=== PATIENT | female | born 2000 ===

== ENCOUNTER 2019-01-11 20:40 | Emergency (ER) | payer BC, OTHER ==
[~2019-01-11] VITALS: Ht 165.1 cm; Wt 86.2 kg
[2019-01-11] MEDS ORDERED: diphenhydrAMINE 50 MG/ML INJ (BENADRYL) ONE (20:54)
[2019-01-11] MEDS ORDERED: methylPREDNISolone 125 MG (Solu-MEDROL) VIAL ONE (20:55)
[2019-01-11] MEDS ORDERED: FAMOTIDINE 20MG/2ML IV (PEPCID) ONE (20:55)
[2019-01-11] MEDS ORDERED: FAMOTIDINE 20MG/2ML IV (PEPCID) IVP ONE (21:00)
[2019-01-11] MEDS ORDERED: methylPREDNISolone 125 MG (Solu-MEDROL) VIAL IVP ONE (21:00)
[2019-01-11] MEDS ORDERED: diphenhydrAMINE 50 MG/ML INJ (BENADRYL) IVP ONE (21:00)
[2019-01-11] MEDS ORDERED: PRD20T PO (21:01)
--- NOTE | 2019-01-11 21:01 | ED General ---
General Chief Complaint: Allergic Reaction Stated Complaint: ALLERGIC REACTION Source of Information: Patient Exam Limitations: No Limitations History of Present Illness Date Seen by Provider: Jan 11, 2019 Time Seen by Provider: 20:56 Initial Comments the to ER with reports of allergic reaction. To ER with reports of allergic reaction. She reports tongue pain and itching. No difficulty swallowing. No rash or hives. No difficulty breathing. No abdominal cramping or diarrhea or nausea or vomiting. She states that she has a history of allergy to tree nuts and ate pistachios about 15 mins prior to arrival. She had a Benadryl orally about 2 hours ago for seasonal allergies. Timing/Duration: Other (15 minutes) Severity: Mild Allergies and Home Medications Allergies Coded Allergies: tree nut (Verified Allergy, Unknown, 01/11/19) Home Medications Prednisone 20 Mg Tab, 20 MG PO BID Prescribed by: AARON PARKS on 01/11/192100 Patient Home Medication List Home Medication List Reviewed: Yes Review of Systems Review of Systems Constitutional: see HPI EENTM: other (tongue pain and itching) Respiratory: see HPI Cardiovascular: no symptoms reported Genitourinary: no symptoms reported Musculoskeletal: no symptoms reported Skin: no symptoms reported Psychiatric/Neurological: No Symptoms Reported Hematologic/Lymphatic: No Symptoms Reported Immunological/Allergic: no symptoms reported Past Bksgglx-Wdpeyo-Yaaadn Hx Patient Social History Recent Foreign Travel: No Contact w/Someone Who Travel: No Physical Exam Vital Signs Vital Signs - First Documented 01/11/19 20:45 Temp 99.0 Pulse 110 Resp 20 B/P (MAP) 152/93 (112) Pulse Ox 100 O2 Delivery Room Air Capillary Refill : Height, Weight, BMI Height: '" Weight: lbs. oz. kg; BMI Method: General Appearance: No Apparent Distress, WD/WN, Other (speaks in full sense is no stridor no respiratory distress no diaphoresis vitals are stable with the exception of tachycardia which can be explained by her anxiety.) Eyes: Bilateral Eye Normal Inspection, Bilateral Eye PERRL, Bilateral Eye EOMI HEENT: PERRL/EOMI, TMs Normal, Other (tongue is noted to have a geographic tongue appearance, slightly erythematous) Neck: Full Range of Motion, Normal Inspection Respiratory: Normal Breath Sounds, No Accessory Muscle Use, No Respiratory Distress Cardiovascular: Normal Peripheral Pulses, Tachycardia Gastrointestinal: Normal Bowel Sounds, Non Tender, Soft Extremity: Normal Capillary Refill, Normal Inspection Neurologic/Psychiatric: Alert, Oriented x3 Skin: Normal Color, Warm/Dry; No Rash Progress/Results/Core Measures Suspected Sepsis SIRS Temperature: Pulse: Respiratory Rate: Blood Pressure / Mean: Results/Orders My Orders Orders - AARON PARKS APRN Iv Heplock-Insert (Order) (01/11/19 20:53) Diphenhydramine Injection (Benadryl Inje (01/11/19 21:00) Famotidine Injection (Pepcid Injection) (01/11/19 21:00) Methylprednisolone Sod Succ (Solu-Medrol (01/11/19 21:00) Diphenhydramine Injection (Benadryl Inje (01/11/19 20:54) Methylprednisolone Sod Succ (Solu-Medrol (01/11/19 20:55) Famotidine Injection (Pepcid Injection) (01/11/19 20:55) Medications Given in ED Current Medications Medications Dose Ordered Sig/Lyndon Route Start Time Stop Time Status Last Admin Dose Admin Diphenhydramine HCl 25 mg ONCE ONCE IVP 01/11/19 21:00 01/11/19 21:01 DC 01/11/19 21:02 25 MG Famotidine 20 mg ONCE ONCE IVP 01/11/19 21:00 01/11/19 21:01 DC 01/11/19 21:03 20 MG Methylprednisolone Sodium Succinate 125 mg ONCE ONCE IVP 01/11/19 21:00 01/11/19 21:01 DC 01/11/19 21:02 125 MG Vital Signs/I&O 01/11/19 20:45 Temp 99.0 Pulse 110 Resp 20 B/P (MAP) 152/93 (112) Pulse Ox 100 O2 Delivery Room Air Capillary Refill : Departure Communication (Admissions) Family Conversation 2200-states she is feeling quite a bit better, tired now. The erythema of the tongue seems to be less pronounced. Still no swelling no rash no hives and no symptoms. Impression Primary Impression: Allergic reaction Qualified Codes: T78.40XA - Allergy, unspecified, initial encounter Disposition: HOME, SELF-CARE Condition: Stable Departure-Patient Inst. Decision time for Depature: 21:00 Referrals: MYRTLE DELEON DO (PCP/Family) Primary Care Physician Patient Instructions: Food Allergy Add. Discharge Instructions: 1. Return to ER for any concerns 2. Follow-up with your doctor next week 3. Return to ER for any worsening. All discharge instructions reviewed with patient and/or family. Voiced understanding. Scripts Prednisone (Prednisone) 20 Mg Tab 20 MG PO BID, #2 TAB Prov: AARON PARKS APRN 01/11/19 AARON PARKS APRN Jan 11, 2019 21:01
--- NOTE | 2019-01-11 21:31 | NUR ---
PT REPORTS SHE IS NO LONGER EXPERIENCING TONGUE OR LIP DISCOMFORT. DENIES SOB, DIFFICULTY BREATHING, OR SWALLOWING. NO DISTRESS NOTED. REPORTS NO NEEDS OR CONCERNS @ THIS TIME. WILL CONTINUE TO MONITOR.
[2019-01-11 22:13] VITALS: BP 134/94
== END 2019-01-11 22:13 | disposition home or self-care (01) ==
LOC: EDUNIT# 20:40 → ER 20:41
DX: T78.40XA Allergy, unspecified, initial encounter (principal); Z79.52 Long term (current) use of systemic steroids; Z91.018 Allergy to other foods
CPT/HCPCS: 96374; 96375

== ENCOUNTER 2019-10-02 23:49 | Emergency (ER) | payer BC ==
[~2019-10-02] VITALS: Ht 162 cm; Wt 83.0 kg
[~2019-10-02 23:49] MED LIST: PRD20T PO
--- NOTE | 2019-10-03 01:23 | ED GI ---
General Chief Complaint: Abdominal/GI Problems Stated Complaint: VOMITING, ABD PAIN Nursing Triage Note: Pt ambulates to RM 10 with c/o upper midline abd pain, N/V x 2 hrs. Pt denies any urinary or bowel changes. Sepsis Screen: No Definite Risk Source of Information: Patient Exam Limitations: No Limitations (JADA KEITH MED STUDENT) History of Present Illness Date Seen by Provider: Oct 03, 2019 Time Seen by Provider: 01:02 Initial Comments Pt presents to ED after experiencing crampy RUQ abdominal pain at approximately 2230 on 10/02/2019. She states the pain woke her up, is constantly crampy with occasional sharp exacerbations and radiates to her back. She has had this pain previously and associates it with poor diet choices. Has had chills, weakness and constant nausea since onset and has vomited more times than she can remember. Denies fever, diarrhea, constipation, melena. Timing/Duration: 1-3 Hours, Constant Severity/Quality: Severe, Aching, Dull, Stabbing Location: RUQ Radiation: Back Activities at Onset: Sleeping Modifying Factors: Worsens With Eating, Worsens With Palpation Associated Symptoms: No Back Pain, No Chest Pain, No Diaphoresis; Fever/Chills, Headache, Nausea/Vomiting, Weakness (JADA KEITH MED STUDENT) Location: Epigastric Radiation: Back Associated Symptoms: Nausea/Vomiting (WESLEY ABREU MD) Allergies and Home Medications Allergies Coded Allergies: tree nut (Verified Allergy, Unknown, 01/11/19) Home Medications Prednisone 20 Mg Tab, 20 MG PO BID Prescribed by: AARON PARKS on 01/11/192100 Patient Home Medication List Home Medication List Reviewed: Yes (JADA KEITH MED STUDENT) Home Medication List Reviewed: Yes (WESLEY ABREU MD) Review of Systems Review of Systems Constitutional: chills; No diaphoresis, No fever; malaise, weakness EENTM: No Eye Pain, No Ear Pain, No Mouth Pain, No Nose Pain, No Throat Pain Respiratory: Denies Cough, Denies Orthopnea Cardiovascular: Denies Chest Pain, Denies Syncope Gastrointestinal: Abdominal Pain, Diarrhea, Nausea, Vomiting Musculoskeletal: No back pain, No joint pain Skin: No lesions, No lumps, No rash Psychiatric/Neurological: Denies Anxiety, Denies Depressed Endocrine: Denies Intolerance to Cold, Denies Intolerance to Heat Hematologic/Lymphatic: Denies Blood Clots, Denies Easy Bleeding (JADA KEITH MED STUDENT) Respiratory: No Symptoms Reported Cardiovascular: No Symptoms Reported Gastrointestinal: Abdominal Pain, Vomiting Genitourinary: No Symptoms Reported (WESLEY ABREU MD) Past Jmqzqfx-Fqxjyx-Rtajxe Hx Past Med/Social Hx: Reviewed Nursing Past Med/Soc Hx (WESLEY ABREU MD) Patient Social History Alcohol Use: Rarely Uses Recreational Drug Use: No Smoking Status: Never a Smoker 2nd Hand Smoke Exposure: No Recent Foreign Travel: No Contact w/Someone Who Travel: No Recent Infectious Disease Expo: No Recent Hopitalizations: No Physical Abuse: No Sexual Abuse: No Mistreated: No Fear: No (JADA KEITH MED STUDENT) Seasonal Allergies Seasonal Allergies: No (JADA KEITH MED STUDENT) Past Medical History Surgeries: No Respiratory: No Cardiac: Yes (heart murmur at ) Neurological: No Genitourinary: No Gastrointestinal: No Musculoskeletal: No Endocrine: No HEENT: No Cancer: No Psychosocial: No Integumentary: No Blood Disorders: No (JADA KEITH MED STUDENT) Family Medical History Reviewed Nursing Family Hx (WESLEY ABREU MD) Cancer (JADA KEITH MED STUDENT) Physical Exam Vital Signs Vital Signs - First Documented 10/03/19 00:06 Temp 37.0 Pulse 112 Resp 18 B/P (MAP) 133/76 (95) Pulse Ox 98 O2 Delivery Room Air (WESLEY ABREU MD) Vital Signs Capillary Refill : Less Than 3 Seconds (JADA KEITH MED STUDENT) Height/Weight/BMI Height: 5'5.00" Weight: 190lbs. oz. 86.037156cu; 31.00 BMI Method:Stated General Appearance: WD/WN, no apparent distress HEENT: PERRL/EOMI, normal ENT inspection, TMs normal, pharynx normal Neck: non-tender, supple Respiratory: chest non-tender, lungs clear, normal breath sounds, no respiratory distress, no accessory muscle use Cardiovascular: regular rate, rhythm, no edema, no gallop Gastrointestinal: soft; No distended, No guarding, No rebound; tenderness (RUQ to deep palpation ), other Extremities: no pedal edema, no calf tenderness, normal capillary refill Back: normal inspection, no CVA tenderness, no vertebral tenderness Neurologic/Psychiatric: alert, oriented x 3 Skin: normal color, warm/dry Lymphatic: no adenopathy (anterior/posterior cervical, supra/infraclavicular ) (JADA KEITH,MED STUDENT) General Appearance: WD/WN, no apparent distress Respiratory: lungs clear, normal breath sounds Cardiovascular: regular rate, rhythm, no murmur Gastrointestinal: soft, tenderness (epigastric region) Back: normal inspection, no CVA tenderness, no vertebral tenderness (WESLEY ABREU MD) Progress/Results/Core Measures Results/Orders Lab Results Laboratory Tests Test 10/03/19 01:47 Range/Units White Blood Count 15.5 H 4.3-11.0 10^3/uL Red Blood Count 4.85 4.35-5.85 10^6/uL Hemoglobin 13.4 11.5-16.0 G/DL Hematocrit 41 35-52 % Mean Corpuscular Volume 85 80-99 FL Mean Corpuscular Hemoglobin 28 25-34 PG Mean Corpuscular Hemoglobin Concent 33 32-36 G/DL Red Cell Distribution Width 13.5 10.0-14.5 % Platelet Count 374 130-400 10^3/uL Mean Platelet Volume 9.0 7.4-10.4 FL Neutrophils (%) (Auto) 85 H 42-75 % Lymphocytes (%) (Auto) 7 L 12-44 % Monocytes (%) (Auto) 8 0-12 % Eosinophils (%) (Auto) 1 0-10 % Basophils (%) (Auto) 0 0-10 % Neutrophils # (Auto) 13.2 H 1.8-7.8 X 10^3 Lymphocytes # (Auto) 1.0 1.0-4.0 X 10^3 Monocytes # (Auto) 1.2 H 0.0-1.0 X 10^3 Eosinophils # (Auto) 0.1 0.0-0.3 10^3/uL Basophils # (Auto) 0.0 0.0-0.1 10^3/uL Neutrophils % (Manual) 91 % Lymphocytes % (Manual) 4 % Monocytes % (Manual) 4 % Eosinophils % (Manual) 1 % Sodium Level 141 135-145 MMOL/L Potassium Level 4.2 3.6-5.0 MMOL/L Chloride Level 105 98-107 MMOL/L Carbon Dioxide Level 21 21-32 MMOL/L Anion Gap 15 H 5-14 MMOL/L Blood Urea Nitrogen 15 7-18 MG/DL Creatinine 0.82 0.60-1.30 MG/DL Estimat Glomerular Filtration Rate > 60 BUN/Creatinine Ratio 18 Glucose Level 107 H 70-105 MG/DL Calcium Level 9.0 8.5-10.1 MG/DL Corrected Calcium 8.7 8.5-10.1 MG/DL Total Bilirubin 0.2 0.1-1.0 MG/DL Aspartate Amino Transf (AST/SGOT) 22 5-34 U/L Alanine Aminotransferase (ALT/SGPT) 16 0-55 U/L Alkaline Phosphatase 61 40-136 U/L C-Reactive Protein High Sensitivity 0.47 0.00-0.50 MG/DL Total Protein 7.8 6.4-8.2 GM/DL Albumin 4.4 3.2-4.5 GM/DL Serum Test, Qualitative NEGATIVE NEGATIVE (WESLEY ABREU MD) My Orders Orders - WESLEY ABREU MD Cbc With Automated Diff (10/03/19 01:37) Comprehensive Metabolic Panel (10/03/19 01:37) Hs C Reactive Protein (10/03/19 01:37) Hcg,Qualitative Serum (10/03/19 01:37) Ed Iv/Invasive Line Start (10/03/19 01:37) Ns Iv 1000 Ml (Sodium Chloride 0.9%) (10/03/19 01:37) Ondansetron Injection (Zofran Injectio (10/03/19 01:45) Ketorolac Injection (Toradol Injection) (10/03/19 01:37) Manual Differential (10/03/19 01:47) Famotidine Injection (Pepcid Injection) (10/03/19 02:30) (WESLEY ABREU MD) Medications Given in ED Current Medications Medications Dose Ordered Sig/Lyndon Route Start Time Stop Time Status Last Admin Dose Admin Ondansetron HCl 4 mg ONCE ONCE IVP 10/03/19 01:45 10/03/19 01:46 DC 10/03/19 01:57 4 MG Sodium Chloride 1,000 ml @ 0 mls/hr Q0M ONCE IV 10/03/19 01:37 10/03/19 01:39 DC 10/03/19 01:57 0 MLS/HR (WESLEY ABREU MD) Vital Signs/I&O 10/03/19 00:06 Temp 37.0 Pulse 112 Resp 18 B/P (MAP) 133/76 (95) Pulse Ox 98 O2 Delivery Room Air (WESLEY ABREU MD) Blood Pressure Mean: 95 POS Progress Progress Note : Time: 01:24 Progress Note Seen and evaluated. Ordered CMP, CBC and abdominal CT w/o contrast to r/o cholelithiasis, choledocholithiasis. Administering Zofran for vomiting. Will consult surgery suspect cholecystectomy. (JADA KEITH,MED STUDENT) Progress Note : Progress Note I have seen and evaluated the patient and agree with above except as indicated. I have directed the plan of care. Patient now reports that the pain is mostly in the epigastric region and goes to her back. Noticed this tonight when it woke her up with the pain. She has not really had pain like this before she reports now. She has not been eating well and has been under a lot of stress at work due to the increased demand during the holiday season. She is starting to feel better overall. Patient does have some history of reflux problems in her mother does as well. IV, labs and ondansetron 4 mg IV. Normal saline 1 L bolus. We will give Pepcid 20 mg IV. Monitor patient. 0320: Pain relieved and feels normal now. Labs evaluated in there is elevation in white blood cell count but this may be related to the vomiting. No elevation in total bilirubin or liver enzymes and currently no indications of gallbladder disease. This seems to be more reflux issues. Discharged home with return precautions. Patient verbalize understanding instructions and agreement with plan. (WESLEY ABREU MD) Departure Impression Primary Impression: Epigastric abdominal pain Disposition: HOME, SELF-CARE Condition: Improved Departure-Patient Inst. Decision time for Depature: 03:24 (WESLEY ABREU MD) Referrals: DEEDEE DUNCAN MD (PCP/Family) Primary Care Physician Patient Instructions: Acute Abdomen (Belly Pain), Adult (DC), Acid Reflux (Gastroesophageal Reflux Disease) in Adults Add. Discharge Instructions: All discharge instructions reviewed with patient and/or family. Voiced understanding. You may take Pepcid or the generic famotidine 20 mg for your stomach upset. You should take this twice daily for the next 7 days and then once or twice daily thereafter as needed for stomach upset. Follow-up with your doctor and discuss with her regarding your pain and situation. You may need referral to a surgeon for upper endoscopy but you can discussed this with your doctor. Return for worse pain, fever, vomiting, weakness, breathing problems or other concerns as needed. JADA KEITH,MED STUDENT Oct 03, 2019 01:23 WESLEY BULLOCK MD Oct 03, 2019 03:25 POS
[2019-10-03] MEDS ORDERED: NS IV 1000 ML 1,000 ML IV ONE (01:37)
[2019-10-03] MEDS ORDERED: KETOROLAC 30 MG/ML VIAL IVP STA (01:37)
[2019-10-03] MEDS ORDERED: ONDANSETRON 4 MG/2 ML (SDV) Z0FRAN IVP ONE (01:45)
[2019-10-03 02:00] LABS: BASOPHILS % (AUTO) 0 % (0-10); EOSINOPHILS # (AUTO) 0.1 10^3/uL (0.0-0.3); EOSINOPHILS % (AUTO) 1 % (0-10); HEMATOCRIT 41 % (35-52); HEMOGLOBIN 13.4 G/DL (11.5-16.0); LYMPHOCYTES % (AUTO) 7 % (12-44); MEAN CORPUSCULAR HEMOGLOBIN 28 PG (25-34); MEAN CORPUSCULAR HGB CONC 33 G/DL (32-36); MEAN CORPUSCULAR VOLUME 85 FL (80-99); MONOCYTES # (AUTO) 1.2 X 10^3 (0.0-1.0); MONOCYTES % (AUTO) 8 % (0-12); NEUTROPHILS # (AUTO) 13.2 X 10^3 (1.8-7.8); NEUTROPHILS % (AUTO) 85 % (42-75); PLATELET COUNT 374 10^3/uL (130-400); RED CELL DISTRIBUTION WIDTH 13.5 % (10.0-14.5); WHITE BLOOD COUNT 15.5 10^3/uL (4.3-11.0)
[2019-10-03 02:22] LABS: ALANINE AMINOTRANSFERASE 16 U/L (0-55); ALBUMIN 4.4 GM/DL (3.2-4.5); ALKALINE PHOSPHATASE 61 U/L (40-136); BILIRUBIN,TOTAL 0.2 MG/DL (0.1-1.0); BUN/CREATININE RATIO 18; CARBON DIOXIDE 21 MMOL/L (21-32); CHLORIDE 105 MMOL/L (98-107); CREATININE SERUM 0.82 MG/DL (0.60-1.30); GFR ESTIMATED > 60; GLUCOSE 107 MG/DL (70-105); POTASSIUM 4.2 MMOL/L (3.6-5.0); SODIUM 141 MMOL/L (135-145); TOTAL PROTEIN 7.8 GM/DL (6.4-8.2)
[2019-10-03] MEDS ORDERED: FAMOTIDINE 20MG/2ML IV (PEPCID) IV STA (02:30)
[2019-10-03 02:49] LABS: EOSINOPHILS % (MANUAL) 1 %; LYMPHOCYTES % (MANUAL) 4 %; MONOCYTES % (MANUAL) 4 %; NEUTROPHILS % (MANUAL) 91 %
[2019-10-03 03:54] VITALS: BP 133/76
== END 2019-10-03 04:05 | disposition home or self-care (01) ==
LOC: EDUNIT# 23:49 → ER 23:51
DX: R10.13 Epigastric pain (principal); Z79.52 Long term (current) use of systemic steroids
CPT/HCPCS: 36415; 80053; 84703; 85007; 85027; 86141

== ENCOUNTER 2019-10-05 06:59 | Emergency (ER) | payer BC ==
[~2019-10-05] VITALS: Ht 162.5 cm; Wt 86.0 kg
[2019-10-05] MEDS ORDERED: LACTATED RINGERS 1,000 ML IV ONE (07:18)
--- NOTE | 2019-10-05 07:20 | ED Abdominal Pain ---
General Stated Complaint: VOMITING,ABD PAIN,WEAK Source of Information: Patient History of Present Illness Date Seen by Provider: Oct 05, 2019 Time Seen by Provider: 07:15 Initial Comments PT ARRIVES VIA POV FROM HOME C/O NAUSEA AND VOMITING STATES SHE STARTED HAVING SYMPTOMS ON THURSDAY, AND WAS SEEN HERE 10/02/19--HAD LAB DONE, AND WAS FEELING BETTER, SO SENT HOME, NO RX'S --WAS TOLD TO TAKE OTC OMEPRAZOLE. PT STATES YESTERDAY SHE "FELT SUPER SLUGGISH" AND HAS HAD DECREASED APPETITE STATES SHE ATE [employer] THIS AM AND THEY STAYED DOWN, THEN ATE [employer]ONG[employer] Y[employer]URT AND VOMITED X 1 AFTER EATING THAT. PT IS KEEPING LIQUIDS DOWN, AND IS ACTIVELY DRINKING A BOTTLE OF WATER ON ARRIVAL. PT ADVISED THAT SHE NEEDED TO REMAIN NPO UNTIL TESTS WERE DONE NO DIARRHEA, HAD NORMAL BM YESTERDAY STATES SHE IS VOIDING A NORMAL AMOUNT, AND NO URINARY SYMPTOMS NO FEVER, BUT HAS HAD " COLD SHAKES" DENIES ANY ABDOMINAL PAIN, STATES SHE JUST FEELS BLOATED AND FULL IN UPPER ABDOMEN AREA. LMP--ENDED ON Thursday10/02/19.NORMAL. ON OCP'S. NO PRIOR GI OR PATIENT FINANCIAL ADVOCATE PROBLEMS AND NO ABDOMINAL SURGERIES PCP: DR. DUNCAN Allergies and Home Medications Allergies Coded Allergies: tree nut (Verified Allergy, Unknown, 01/11/19) Home Medications Ondansetron 4 Mg Tab.rapdis, 4 MG PO Q4H Prescribed by: SHIREEN WAKEFIELD on 10/05/19 0950 Sucralfate 1 Gm Tablet, 1 GM PO QIDACHS Prescribed by: SHIREEN WAKEFIELD on 10/05/19 0950 Patient Home Medication List Home Medication List Reviewed: Yes Review of Systems Review of Systems Constitutional: see HPI, malaise EENTM: No Symptoms Reported Respiratory: No Symptoms Reported Cardiovascular: No Symptoms Reported Gastrointestinal: See HPI; Denies Abdominal Pain, Denies Constipated, Denies Diarrhea; Nausea, Poor Appetite, Vomiting Genitourinary: No Symptoms Reported Musculoskeletal: no symptoms reported; No back pain Skin: no symptoms reported Psychiatric/Neurological: No Symptoms Reported Endocrine: No Symptoms Reported Hematologic/Lymphatic: No Symptoms Reported Past Lghsbbk-Fgppes-Zxkicy Hx Patient Social History Alcohol Use: Denies Use Recreational Drug Use: No Smoking Status: Never a Smoker 2nd Hand Smoke Exposure: No Recent Hopitalizations: No Seasonal Allergies Seasonal Allergies: No Past Medical History Surgeries: No Respiratory: No Cardiac: Yes (heart murmur at ) Neurological: No : No Reproductive Disorders: No Genitourinary: No Gastrointestinal: No Musculoskeletal: No Endocrine: No HEENT: No Cancer: No Psychosocial: No Integumentary: No Blood Disorders: No Family Medical History Cancer Physical Exam Vital Signs Vital Signs - First Documented 10/05/19 07:05 Temp 36.7 Pulse 108 Resp 18 B/P (MAP) 126/85 (99) Pulse Ox 98 Capillary Refill : Height/Weight/BMI Height: 5'5.00" Weight: 190lbs. oz. 86.290039xv; 31.00 BMI Method:Stated General Appearance: WD/WN, no apparent distress, other (DOES NOT APPEAR TO BE IN ANY DISCOMFORT OR DISTRESS. DRINKING WATER AND TEXTING/PLAYING ON PHONE. WALKS UPRIGHT AND MOVES WITHOUT DIFFICULTY. DOES NOT APPEAR TO BE IN ANY DISCOMFORT OR APPEAR ILL WHATSOEVER. ) Respiratory: normal breath sounds, no respiratory distress, no accessory muscle use Cardiovascular: regular rate, rhythm, no edema, no JVD, no murmur Gastrointestinal: normal bowel sounds, soft, no organomegaly, no pulsatile mass; No distended, No guarding, No rebound; tenderness (SLIGHT "PRESSURE" FEELING ON PALPATION OF EPIGASTRIC AREA. ); No hernia, No mass Extremities: normal inspection Back: normal inspection, no CVA tenderness Neurologic/Psychiatric: director of planning II-XII nml as tested, no motor/sensory deficits, alert, normal mood/affect, oriented x 3 Skin: normal color, warm/dry; No rash Progress/Results/Core Measures Results/Orders Lab Results Laboratory Tests Test 10/05/19 07:10 10/05/19 09:00 Range/Units White Blood Count 5.2 4.3-11.0 10^3/uL Red Blood Count 4.82 4.35-5.85 10^6/uL Hemoglobin 13.4 11.5-16.0 G/DL Hematocrit 40 35-52 % Mean Corpuscular Volume 84 80-99 FL Mean Corpuscular Hemoglobin 28 25-34 PG Mean Corpuscular Hemoglobin Concent 33 32-36 G/DL Red Cell Distribution Width 13.3 10.0-14.5 % Platelet Count 280 130-400 10^3/uL Mean Platelet Volume 8.8 7.4-10.4 FL Neutrophils (%) (Auto) 64 42-75 % Lymphocytes (%) (Auto) 21 12-44 % Monocytes (%) (Auto) 15 H 0-12 % Eosinophils (%) (Auto) 1 0-10 % Basophils (%) (Auto) 0 0-10 % Neutrophils # (Auto) 3.3 1.8-7.8 X 10^3 Lymphocytes # (Auto) 1.1 1.0-4.0 X 10^3 Monocytes # (Auto) 0.8 0.0-1.0 X 10^3 Eosinophils # (Auto) 0.0 0.0-0.3 10^3/uL Basophils # (Auto) 0.0 0.0-0.1 10^3/uL Sodium Level 137 135-145 MMOL/L Potassium Level 3.3 L 3.6-5.0 MMOL/L Chloride Level 104 98-107 MMOL/L Carbon Dioxide Level 22 21-32 MMOL/L Anion Gap 11 5-14 MMOL/L Blood Urea Nitrogen 9 7-18 MG/DL Creatinine 0.81 0.60-1.30 MG/DL Estimat Glomerular Filtration Rate > 60 BUN/Creatinine Ratio 11 Glucose Level 114 H 70-105 MG/DL Calcium Level 8.5 8.5-10.1 MG/DL Corrected Calcium 8.5 8.5-10.1 MG/DL Total Bilirubin 0.3 0.1-1.0 MG/DL Aspartate Amino Transf (AST/SGOT) 19 5-34 U/L Alanine Aminotransferase (ALT/SGPT) 17 0-55 U/L Alkaline Phosphatase 58 40-136 U/L Total Protein 7.0 6.4-8.2 GM/DL Albumin 4.0 3.2-4.5 GM/DL Amylase Level 28 25-125 U/L Lipase 10 8-78 U/L Serum Test, Qualitative NEGATIVE NEGATIVE Urine Color YELLOW Urine Clarity SL CLOUDY Urine pH 7.0 5-9 Urine Specific [place] <=1.005 1.016-1.022 Urine Protein NEGATIVE NEGATIVE Urine Glucose (UA) NEGATIVE NEGATIVE Urine Ketones NEGATIVE NEGATIVE Urine Nitrite NEGATIVE NEGATIVE Urine Bilirubin NEGATIVE NEGATIVE Urine Urobilinogen 0.2 < = 1.0 MG/DL Urine Leukocyte Esterase NEGATIVE NEGATIVE Urine RBC (Auto) TRACE-I NEGATIVE Urine RBC NONE /HPF Urine WBC 2-5 /HPF Urine Squamous Epithelial Cells 25-50 H /HPF Urine Crystals NONE /LPF Urine Bacteria MODERATE H /HPF Urine Casts NONE /LPF Urine Mucus NEGATIVE /LPF Urine Culture Indicated NO My Orders Orders - SHIREEN WAKEFIELD DO Ed Iv/Invasive Line Start (10/05/19 07:18) Amylase (10/05/19 07:18) Cbc With Automated Diff (10/05/19 07:18) Comprehensive Metabolic Panel (10/05/19 07:18) Hcg,Qualitative Serum (10/05/19 07:18) Lipase (10/05/19 07:18) Ua Culture If Indicated (10/05/19 07:18) Ed Iv/Invasive Line Start (10/05/19 07:18) Lactated Ringers (Lr 1000 Ml Iv Solution (10/05/19 07:18) Ct Abdomen/Pelvis W (10/05/19 07:26) Acute Abd Series (10/05/19 07:26) Iohexol Injection (Omnipaque 350 Mg/Ml 1 (10/05/19 07:30) Received Contrast (Hold Metformin- Contr (10/05/19 07:30) Ns (Ivpb) (Sodium Chloride 0.9% Ivpb Bag (10/05/19 07:30) Ondansetron Injection (Zofran Injectio (10/05/19 07:45) Ondansetron Injection (Zofran Injectio (10/05/19 07:34) Pantoprazole Injection (Protonix Injecti (10/05/19 08:30) Us Abdomen Complete [id number] (10/05/19 08:30) Medications Given in ED Current Medications Medications Dose Ordered Sig/Lyndon Route Start Time Stop Time Status Last Admin Dose Admin Iohexol 100 ml ONCE ONCE IV 10/05/19 07:30 10/05/19 07:55 DC 10/05/19 08:02 100 ML Lactated Ringer's 1,000 ml @ 0 mls/hr Q0M ONCE IV 10/05/19 07:18 10/05/19 07:20 DC 10/05/19 07:38 1,000 MLS/HR Ondansetron HCl 4 mg ONCE ONCE IVP 10/05/19 07:45 10/05/19 07:46 DC 10/05/19 07:35 4 MG Pantoprazole 40 mg ONCE ONCE IV 10/05/19 08:30 10/05/19 08:31 DC 10/05/19 08:35 40 MG Sodium Chloride 100 ml ONCE ONCE IV 10/05/19 07:30 10/05/19 07:55 DC 10/05/19 08:02 100 ML Vital Signs/I&O 10/05/19 07:05 Temp 36.7 Pulse 108 Resp 18 B/P (MAP) 126/85 (99) Pulse Ox 98 Progress Progress Note : Progress Note GIVEN ZOFRAN FOR NAUSEA, NO OTHER COMPLAINTS DURING ER STAY STATES SHE IS VERY HUNGRY Diagnostic Imaging Comments ABDOMEN XRAYS--NO ACUTE PROCESS, PER RADIOLOGIST REPORT AT 0830 CT ABDOMEN / PELVIS--FEW SCATTERED 1 CM MESENTERIC NODES IN RLQ, 4.4. CM LEFT OVARIAN CYST, OTHERWISE NO ACUTE PROCESS, PER RADIOLOGIST REPORT AT 0830 ABDOMINAL ULTRASOUND--NO ACUTE PROCESS, PER RADIOLOGIST REPORT AT 0945 Reviewed: Reviewed by Me Departure Impression Primary Impression: Gastroenteritis Additional Impressions: Mesenteric adenitis Left ovarian cyst Disposition: HOME, SELF-CARE Condition: Stable Departure-Patient Inst. Referrals: DEEDEE DUNCAN MD (PCP/Family) Primary Care Physician Patient Instructions: [id number], Mesenteric Lymphadenitis (DC), Ovarian Cyst (DC) Add. Discharge Instructions: CLEAR LIQUIDS--WATER, BROTH, JELLO, GATORADE BRATS DIET--BANANAS, RICE, APPLESAUCE, TOAST, SALTINES CONTINUE OMEPRAZOLE DAILY FOLLOW UP WITH DR. DUNCAN NEXT WEEK FOR FURTHER CARE, RETURN TO ER IF WORSE Scripts Sucralfate (Carafate) 1 Gm Tablet 1 GM PO QIDACHS, #60 TAB Prov: SHIREEN WAKEFIELD DO 10/05/19 Ondansetron (Ondansetron Odt) 4 Mg Tab.rapdis 4 MG PO Q4H for Nausea/Vomiting, #10 TAB Prov: SHIREEN WAKEFIELD DO 10/05/19 SHIREEN WAKEFIELD DO Oct 05, 2019 07:20 POS
[2019-10-05 07:28] LABS: BASOPHILS % (AUTO) 0 % (0-10); EOSINOPHILS % (AUTO) 1 % (0-10); HEMATOCRIT 40 % (35-52); HEMOGLOBIN 13.4 G/DL (11.5-16.0); LYMPHOCYTES # (AUTO) 1.1 X 10^3 (1.0-4.0); LYMPHOCYTES % (AUTO) 21 % (12-44); MEAN CORPUSCULAR HEMOGLOBIN 28 PG (25-34); MEAN CORPUSCULAR HGB CONC 33 G/DL (32-36); MEAN CORPUSCULAR VOLUME 84 FL (80-99); MEAN PLATELET VOLUME 8.8 FL (7.4-10.4); MONOCYTES # (AUTO) 0.8 X 10^3 (0.0-1.0); MONOCYTES % (AUTO) 15 % (0-12); NEUTROPHILS # (AUTO) 3.3 X 10^3 (1.8-7.8); NEUTROPHILS % (AUTO) 64 % (42-75); PLATELET COUNT 280 10^3/uL (130-400); RED CELL DISTRIBUTION WIDTH 13.3 % (10.0-14.5); WHITE BLOOD COUNT 5.2 10^3/uL (4.3-11.0)
[2019-10-05] MEDS ORDERED: IOHEXOL 350 MG/ML 100 ML (OMNIPAQUE 350) VIAL IV ONE (07:30)
[2019-10-05] MEDS ORDERED: NS 100 ML (IVPB) BAG IV ONE (07:30)
[2019-10-05] MEDS ORDERED: HOLD METFORMIN - RECEIVED CONTRAST 20 ML VIAL IV SCH (07:30)
[2019-10-05] MEDS ORDERED: ONDANSETRON 4 MG/2 ML (SDV) Z0FRAN ONE (07:34)
[2019-10-05 07:45] LABS: ALANINE AMINOTRANSFERASE 17 U/L (0-55); ALKALINE PHOSPHATASE 58 U/L (40-136); AMYLASE 28 U/L (25-125); BILIRUBIN,TOTAL 0.3 MG/DL (0.1-1.0); BUN/CREATININE RATIO 11; CALCIUM 8.5 MG/DL (8.5-10.1); CARBON DIOXIDE 22 MMOL/L (21-32); CHLORIDE 104 MMOL/L (98-107); CREATININE SERUM 0.81 MG/DL (0.60-1.30); GFR ESTIMATED > 60; GLUCOSE 114 MG/DL (70-105); LIPASE 10 U/L (8-78); POTASSIUM 3.3 MMOL/L (3.6-5.0); SODIUM 137 MMOL/L (135-145)
[2019-10-05] MEDS ORDERED: ONDANSETRON 4 MG/2 ML (SDV) Z0FRAN IVP ONE (07:45)
[2019-10-05] MEDS ORDERED: DIPH25CA79 PO (08:04)
[2019-10-05] MEDS ORDERED: NORG1TAB14 PO (08:04)
[2019-10-05] MEDS ORDERED: OMEP20CA13 PO (08:04)
--- NOTE | 2019-10-05 08:11 | Diagnostic Imaging Report ---
PROCEDURE: CT abdomen and pelvis with contrast. TECHNIQUE: Multiple contiguous axial images were obtained through the abdomen and pelvis after administration of intravenous contrast. Auto Exposure Controls were utilized during the CT exam to meet ALARA standards for radiation dose reduction. INDICATION: Abdominal pain with nausea and vomiting. COMPARISON: No prior examinations are available for comparison. FINDINGS: The heart size is normal. The lung bases are clear. The liver is normal in size and without focal lesions. The gallbladder is unremarkable. There is no biliary ductal dilatation. Spleen is normal. The pancreas and adrenal glands are unremarkable. The kidneys are normal in appearance. The bowel gas pattern is nonspecific. There is no free air. There is no ascites. There are no focal inflammatory changes. There is a 4.4 cm cyst in the left adnexa, presumably of ovarian origin. There is no free pelvic fluid. The appendix is normal. There are a few prominent lymph nodes in the right lower quadrant measuring approximately 1 cm. The osseous structures are unremarkable. IMPRESSION: 1. Unremarkable gallbladder and appendix. Additionally, there is no evidence of nephrolithiasis or obstructive uropathy. 2. Scattered centimeter-sized lymph nodes in the right lower quadrant, suspect for mesenteric adenitis 3. 4.4 cm cyst in the left adnexa, presumably of ovarian origin. This could be better evaluated with pelvic ultrasound, if clinically warranted. Dictated by: Dictated on workstation # [id number]
--- NOTE | 2019-10-05 08:26 | Diagnostic Imaging Report ---
Patient History: Upper abdominal pain. Nausea and vomiting. Technique: 5 views of the chest and abdomen were obtained. Comparison: CT abdomen and pelvis performed earlier the same date. FINDINGS: The lung volumes are normal. No focal consolidation is seen. No large pleural effusion or pneumothorax is seen. The cardiomediastinal silhouette is normal in size and contour. No acute osseous abnormality is seen. The bowel gas pattern is nondistended. No large collections of free intraperitoneal air. A [id number] amount of stool seen throughout colon. No abnormal calcifications are visualized in the abdomen and pelvis. The included osseous structures are unremarkable. IMPRESSION: 1. No acute pleuroparenchymal process. 2. No evidence of bowel obstruction or large collections of free intraperitoneal air. Dictated by: Dictated on workstation # [id number]
[2019-10-05] MEDS ORDERED: PANTOPRAZOLE 40 MG (PROTONIX) VIAL IV ONE (08:30)
[2019-10-05 09:17] LABS: BILIRUBIN,URINE NEGATIVE (NEGATIVE); CLARITY,URINE SL CLOUDY; COLOR,URINE YELLOW; GLUCOSE, URINE (UA) NEGATIVE (NEGATIVE); KETONES,URINE NEGATIVE (NEGATIVE); LEUKOCYTE ESTERASE ,URINE NEGATIVE (NEGATIVE); NITRITE,URINE NEGATIVE (NEGATIVE); PROTEIN,URINE NEGATIVE (NEGATIVE)
[2019-10-05 09:28] LABS: BACTERIA,URINE MODERATE /HPF
[2019-10-05 09:29] LABS: SQUAMOUS EPITHELIAL CELL,UR 25-50 /HPF
--- NOTE | 2019-10-05 09:42 | Diagnostic Imaging Report ---
EXAM: ABDOMEN COMPLETE ULTRASOUND DATE: October 05, 2019. COMPARISON: Acute series radiographs October 05, 2019. CT abdomen and pelvis October 05, 2019. INDICATION: PROCEDURE: Two-dimensional ultrasound examination of the abdomen is performed. FINDINGS: Liver: The liver is of normal size and echotexture without parenchymal distorting solid or cystic masses. The main portal vein is patent with normal directional flow. Bile ducts and gallbladder: There is no pericholecystic fluid, gallbladder wall thickening or gallstones. The gallbladder wall measures 0.2 cm. The common bile duct measures 0.3 cm in diameter. Spleen: The spleen is normal. Right kidney: The right kidney is of normal size and contour with good corticomedullary differentiation. There are no shadowing calculi or cortical deforming solid or cystic masses. No hydronephrosis. The right kidney measures 11.0 cm x 5.9 cm x 5.5 cm. Left kidney: The left kidney is of normal size and contour with good corticomedullary differentiation. There are no shadowing calculi or cortical deforming solid or cystic masses. No hydronephrosis. The left kidney measures 10.8 cm x 5.7 cm x 5.8 cm. Pancreas: Visualized portions of the pancreas are unremarkable. Aorta: The aorta is of normal caliber. Inferior vena cava: The inferior vena cava is of normal caliber. IMPRESSION: 1. Unremarkable complete abdominal ultrasound. Dictated by: Dictated on workstation # [id number]
[2019-10-05] MEDS ORDERED: ONDA4TAB11 PO (09:50)
[2019-10-05] MEDS ORDERED: SUCR1TAB36 PO (09:50)
[2019-10-05 10:00] VITALS: BP 122/74
== END 2019-10-05 10:02 | disposition home or self-care (01) ==
LOC: EDUNIT# 06:59 → ER 07:01
DX: K52.9 Noninfective gastroenteritis and colitis, unspecified (principal); I88.0 Nonspecific mesenteric lymphadenitis; N83.202 Unspecified ovarian cyst, left side
CPT/HCPCS: 36415; 74022; 74177; 76700; 80053; 81000; 82150; 83690; 84703; 85025; 96361; 96374; 96375

== ENCOUNTER 2021-04-29 20:55 | Emergency (ER) | payer BC ==
[~2021-04-29] VITALS: Ht 162 cm; Wt 77.0 kg
[~2021-04-29 20:55] MED LIST changes: +DIPH25CA79 PO; +NORG1TAB14 PO; +OMEP20CA18 PO; +ONDA4TAB11 PO; +SUCR1TAB36 PO
[2021-04-29] MEDS ORDERED: FAMOTIDINE 20MG/2ML IV (PEPCID) IVP ONE (21:15)
[2021-04-29] MEDS ORDERED: methylPREDNISolone 40 MG/ML (Solu-MEDROL) VIAL IV ONE (21:15)
--- NOTE | 2021-04-29 21:18 | ED General ---
General Chief Complaint: Allergic Reaction Stated Complaint: ALLERGIC REACTION Source of Information: Patient Exam Limitations: No Limitations History of Present Illness Date Seen by Provider: Apr 29, 2021 Time Seen by Provider: 21:15 Initial Comments To ER with reports of an allergic reaction. 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 She did not eat any nuts that she is aware of but believes that some of the food may have been cooked in tree nut oil. She after eating developed a sensation of tightness in her throat. No rash or hives or shortness of breath. She took 3 Benadryl just before coming to ER. Timing/Duration: 1-2 Days Severity: Moderate Associated Systoms: Denies Symptoms Allergies and Home Medications Allergies Coded Allergies: tree nut (Verified Allergy, Unknown, 01/11/19) Home Medications Ondansetron 4 Mg Tab.rapdis, 4 MG PO Q4H Prescribed by: SHIREEN WAKEFIELD on 10/05/19 0950 Sucralfate 1 Gm Tablet, 1 GM PO QIDACHS Prescribed by: SHIREEN WAKEFIELD on 10/05/19 0950 Patient Home Medication List Home Medication List Reviewed: Yes Review of Systems Review of Systems Constitutional: see HPI EENTM: see HPI Respiratory: no symptoms reported Cardiovascular: no symptoms reported Genitourinary: no symptoms reported Musculoskeletal: no symptoms reported Skin: no symptoms reported Psychiatric/Neurological: No Symptoms Reported Hematologic/Lymphatic: No Symptoms Reported Immunological/Allergic: no symptoms reported Past Juvexwk-[place]-Wyungn Hx Seasonal Allergies Seasonal Allergies: No Past Medical History Surgeries: No Respiratory: No Cardiac: Yes (heart murmur at ) Neurological: No Reproductive Disorders: No Genitourinary: No Gastrointestinal: No Musculoskeletal: No Endocrine: No HEENT: No Cancer: No Psychosocial: No Integumentary: No Blood Disorders: No Family Medical History Cancer Physical Exam Vital Signs Capillary Refill : Height, Weight, BMI Height: 5'5.00" Weight: 190lbs. oz. 86.725200gi; 32.00 BMI Method:Stated General Appearance: No Apparent Distress, WD/WN, Other (No hives no rash no stridor no drooling no wheezing no urticaria) Eyes: Bilateral Eye Normal Inspection, Bilateral Eye PERRL, Bilateral Eye EOMI HEENT: PERRL/EOMI, TMs Normal Neck: Full Range of Motion, Normal Inspection Respiratory: No Accessory Muscle Use, No Respiratory Distress Cardiovascular: Regular Rate, Rhythm, Normal Peripheral Pulses Gastrointestinal: Normal Bowel Sounds, Non Tender, Soft Extremity: Normal Capillary Refill, Normal Inspection Neurologic/Psychiatric: Alert, Oriented x3 Skin: Normal Color, Warm/Dry Progress/Results/Core Measures Suspected Sepsis SIRS Temperature: Pulse: Respiratory Rate: Blood Pressure / Mean: Results/Orders Vital Signs/I&O Capillary Refill : Departure Impression Primary Impression: Throat tightness Additional Impression: Food allergy Disposition: 01 HOME, SELF-CARE Condition: Stable Departure-Patient Inst. Decision time for Depature: 21:17 Referrals: DEEDEE DUNCAN MD (PCP/Family) Primary Care Physician Patient Instructions: Food Allergy Work/School Note: Work Release Form Date Seen in the Emergency Department: Apr 29, 2021 Return to Work: May 01, 2021 AARON PARKS APRN Apr 29, 2021 21:17
[2021-04-29 21:59] VITALS: BP 128/85
== END 2021-04-29 21:59 | disposition home or self-care (01) ==
LOC: EDUNIT# 20:55 → ER 20:56
DX: R09.89 Other specified symptoms and signs involving the circulatory and respiratory systems (principal); T78.1XXA Other adverse food reactions, not elsewhere classified, initial encounter